=== PATIENT | female | born 2000 | race Two or more races ===

== ENCOUNTER 2020-11-25 17:08 | Emergency (ER) | payer OTHER ==
[~2020-11-25] VITALS: Ht 152.4 cm; Wt 54.4 kg
[2020-11-25 18:28] VITALS: BP 111/76
== END 2020-11-25 18:30 | disposition home or self-care (01) ==
LOC: ER 17:38
DX: R07.89 Other chest pain (principal); F41.9 Anxiety disorder, unspecified
CPT/HCPCS: 71046; 93005; 99283

== ENCOUNTER 2022-07-19 22:22 | Emergency (ER) | payer OTHER ==
[~2022-07-19] VITALS: Ht 152.4 cm; Wt 54.4 kg
[2022-07-19] MEDS ORDERED: TETRACAINE HCL 0.5% OPTH SOLN 4 ML BTL OP ONE (22:45)
[2022-07-19] MEDS ORDERED: ERYTHROMYCIN OP (22:50)
[2022-07-19 22:56] VITALS: BP 143/89
== END 2022-07-19 22:56 | disposition home or self-care (01) ==
LOC: EDBD 22:22 → FSED 22:29
DX: S05.02XA Injury of conjunctiva and corneal abrasion without foreign body, left eye, initial encounter (principal); X58.XXXA Exposure to other specified factors, initial encounter; F41.9 Anxiety disorder, unspecified
CPT/HCPCS: 99283

== ENCOUNTER 2025-07-17 23:09 | Emergency (ER) | payer BC ==
[~2025-07-17] VITALS: Ht 152.4 cm; Wt 60.8 kg
[~2025-07-17 23:09] MED LIST: CEPHALEXIN250 MG/5 M PO; ERYTHROMYCIN OP
[2025-07-17 23:15] VITALS: PULSE 89; RESP 18; TEMP 98.1
[2025-07-17] MEDS ORDERED: CILOXAN3.5 GM OS (23:46)
[2025-07-18] MEDS: FLUORESCEIN SOD(OPTH) 1 MG STRP OS ONE (00:02)
[2025-07-18] MEDS: TETRACAINE HCL 0.5% OPTH SOLN 4 ML BTL OS ONE (00:02)
[2025-07-18 00:05] VITALS: BP 145/88; PULSE 89; RESP 18; TEMP 98.1; O2SAT 99
== END 2025-07-18 00:05 | disposition home or self-care (01) ==
LOC: FSED 23:29
DX: S05.02XA Injury of conjunctiva and corneal abrasion without foreign body, left eye, initial encounter (principal); X58.XXXA Exposure to other specified factors, initial encounter; Y92.89 Other specified places as the place of occurrence of the external cause; F41.9 Anxiety disorder, unspecified
CPT/HCPCS: 99282